=== PATIENT | female | born 2000 | race African-American/Black ===

== ENCOUNTER 2020-02-02 13:09 | Emergency (ER) | payer MEDICAID, MEDICARE ==
[~2020-02-02] VITALS: Ht 167.6 cm; Wt 98.0 kg
[2020-02-02 13:12] VITALS: BP 122/71
[2020-02-02] MEDS ORDERED: IBUPROFEN 600MG TABLET PO ONE (14:45)
== END 2020-02-02 16:10 | disposition home or self-care (01) ==
LOC: ER 13:40
DX: S63.591A Other specified sprain of right wrist, initial encounter (principal); W18.39XA Other fall on same level, initial encounter; Y93.89 Activity, other specified; Y92.89 Other specified places as the place of occurrence of the external cause; Y99.8 Other external cause status; J45.909 Unspecified asthma, uncomplicated; Z98.890 Other specified postprocedural states
CPT/HCPCS: 29125; 73110; 99283

== ENCOUNTER 2022-04-15 09:15 | Emergency (ER) | payer MEDICAID ==
[~2022-04-15] VITALS: Ht 162.6 cm; Wt 93.0 kg
[2022-04-15 09:27] VITALS: BP 144/91
[2022-04-15] MEDS ORDERED: ACETAMINOPHEN 325MG TABLET PO ONE (09:45)
== END 2022-04-15 13:45 | disposition home or self-care (01) ==
LOC: ER 09:33
DX: J11.1 Influenza due to unidentified influenza virus with other respiratory manifestations (principal); R05.9 Cough, unspecified; R09.81 Nasal congestion; R50.9 Fever, unspecified; Z98.890 Other specified postprocedural states; Z20.822 Contact with and (suspected) exposure to COVID-19
CPT/HCPCS: 71046; 81025; 87426; 87804; 99284

== ENCOUNTER 2023-03-01 09:50 | Emergency (ER) | payer OTHER, MEDICAID ==
[~2023-03-01] VITALS: Ht 162.6 cm; Wt 97.0 kg
[2023-03-01 10:13] VITALS: BP 140/92; PULSE 83; RESP 17; TEMP 98.4; O2SAT 100
[2023-03-01] MEDS ORDERED: IBUP-1525 MT (13:04)
[2023-03-01] MEDS ORDERED: TOPUD MT (13:04)
[2023-03-01] MEDS ORDERED: AMOX-494 MT (13:04)
== END 2023-03-01 14:30 | disposition home or self-care (01) ==
LOC: ER 10:12
DX: J02.9 Acute pharyngitis, unspecified (principal); J45.909 Unspecified asthma, uncomplicated; Z98.890 Other specified postprocedural states
CPT/HCPCS: 81025; 99283

== ENCOUNTER 2024-05-21 12:10 | Emergency (ER) | payer MEDICAID ==
[~2024-05-21] VITALS: Ht 162.6 cm; Wt 102.0 kg
[~2024-05-21 12:10] MED LIST: AMOX-494 MT; IBUP-1525 MT; TOPUD MT
[2024-05-21 12:16] VITALS: BP 161/98; TEMP 98.8; O2SAT 98
[2024-05-21 12:54] VITALS: PULSE 110; O2SAT 100
[2024-05-21] MEDS ORDERED: BO1 TP (13:15)
[2024-05-21] MEDS: BACITRACIN 14GM TUBE TOP ONE (13:51)
[2024-05-21] MEDS: TETANUS, DIPHTHERIA, PERTUSSIS VAC/PF 0.5ML (>10YR OLD) IM ONE (13:51)
== END 2024-05-21 13:52 | disposition home or self-care (01) ==
LOC: ER 12:10
DX: T21.22XA Burn of second degree of abdominal wall, initial encounter (principal); J45.909 Unspecified asthma, uncomplicated; Z98.890 Other specified postprocedural states; X58.XXXA Exposure to other specified factors, initial encounter; Y93.89 Activity, other specified; Y92.89 Other specified places as the place of occurrence of the external cause; Y99.8 Other external cause status
CPT/HCPCS: 90715; 90471; 99283; Z7610

== ENCOUNTER 2024-07-23 02:01 | Emergency (ER) | payer MEDICAID ==
[~2024-07-23] VITALS: Ht 162.6 cm; Wt 99.0 kg
[~2024-07-23 02:01] MED LIST changes: +BO1 TP
[2024-07-23 02:28] VITALS: O2SAT 97
[2024-07-23 03:12] LABS: HEMATOCRIT. 39.8 % (36.0-48.0); HEMOGLOBIN. 12.8 g/dL (12.0-16.0); MEAN CORPUSCULAR HEMOGLOBIN 24.1 pg (28.0-32.0); MEAN CORPUSCULAR HGB CONC 32.2 g/dL (31.0-37.0); MEAN CORPUSCULAR VOLUME 74.6 fL (81.0-99.0); MEAN PLATELET VOLUME 9.1 fl (7.4-10.4); PLATELET 233 x1000/uL (130-400); RED BLOOD CELL COUNT 5.33 mill/uL (4.2-5.4); RED CELL DISTRIBUTION WIDTH 14.1 % (11.6-14.6); WHITE BLOOD COUNT 14.5 x1000/uL (4.5-11.0)
[2024-07-23 03:18] LABS: CLARITY URINE CLOUDY (CLEAR); COLOR URINE DARK YELLOW (YELLOW); GLUCOSE URINE TRACE (NEGATIVE); KETONES URINE TRACE (NEGATIVE); LEUKOCYTE ESTERASE URINE TRACE (NEGATIVE); NITRITE URINE NEGATIVE (NEGATIVE); OCCULT BLOOD URINE NEGATIVE (NEGATIVE); PH URINE 5.5 (4.5-8.0); PROTEIN URINE NEGATIVE (NEGATIVE); SPECIFIC GRAVITY URINE 1.035 (1.005-1.030); UROBILINOGEN URINE 0.2 E.U./dL (0.2-1.0)
[2024-07-23 03:20] LABS: CHLORIDE 103 mEq/L (98-107); POTASSIUM 3.9 mEq/L (3.5-5.1); SODIUM 137 mEq/L (136-145)
[2024-07-23 03:22] LABS: CARBON DIOXIDE 24 mEq/L (21-32)
[2024-07-23 03:27] LABS: CREATININE 0.7 mg/dL (0.6-1.0); GLUCOSE 268 mg/dL (70-105); UREA NITROGEN BLOOD 11 mg/dL (9-23)
[2024-07-23 03:29] LABS: ALANINE AMINOTRANSFERASE 26 IU/L (10-49); ASPARTATE AMINOTRANSFERASE 17 IU/L (<34); BILIRUBIN DIRECT 0.2 mg/dL (<=3.0); BILIRUBIN TOTAL 0.7 mg/dL (0.1-1.0); PROTEIN TOTAL 6.8 g/dL (6.0-8.3)
[2024-07-23] MEDS: FAMOTIDINE 20MG/2ML VIAL IV ONE (03:30)
[2024-07-23] MEDS: SODIUM CHLORIDE 0.9% 1,000 ML IV ONE (03:30)
[2024-07-23 03:48] LABS: DIFFERENTIAL COMMENT 1
[2024-07-23] MEDS: KETOROLAC 30MG/ML VIAL IV STA (04:16)
[2024-07-23] MEDS: ONDANSETRON HCL 4MG/2ML INJ IV STA (04:17)
[2024-07-23] MEDS: FAMOTIDINE 20MG/2ML VIAL IV NR (05:14)
[2024-07-23] MEDS ORDERED: FAMO-135 MT (05:22)
[2024-07-23 05:26] LABS: SQUAMOUS EPITHELIAL CELL URINE 1+ /lpf (RARE/1+)
[2024-07-23 05:27] LABS: RBC URINE 0-2 /hpf (0-2); WBC URINE 0-2 /hpf (0-2)
[2024-07-23 05:28] LABS: BACTERIA URINE TRACE
[2024-07-23 06:03] VITALS: BP 137/75; PULSE 102; RESP 16; TEMP 36.8; O2SAT 100
[2024-07-23 11:08] LABS: PLATELET ESTIMATE NORMAL
[2024-07-23 11:09] LABS: MICROCYTOSIS 1+
== END 2024-07-23 06:37 | disposition left against medical advice (07) ==
LOC: ER 02:01
DX: R10.13 Epigastric pain (principal); R11.2 Nausea with vomiting, unspecified; R19.7 Diarrhea, unspecified; J45.909 Unspecified asthma, uncomplicated; Z79.1 Long term (current) use of non-steroidal anti-inflammatories (NSAID)
CPT/HCPCS: 99284; 96374; 96361; 96375; 80076; 80048; 81003; 81025; 83690; 85025; 36415; J1885; J3490; J2405; J7030